=== PATIENT | male | born 2000 | race American Indian/Alaskan Native ===

== ENCOUNTER 2021-02-19 12:24 | Emergency (ER) | payer SELFPAY ==
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
[2021-02-19] MEDS ORDERED: MORPHINE 4 MG/1 ML INJ IV ONE (14:22)
[2021-02-19] MEDS ORDERED: ONDANSETRON 4 MG/2 ML INJ IV ONE (14:22)
[2021-02-19] MEDS ORDERED: SODIUM CHLORIDE 0.9% 1000 ML 1,000 ML IV ONE (14:22)
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
[2021-02-19 14:40] LABS: Basophils % (Auto) 0.6 % (0.0-1.8); Eosinophils # (Auto) 0.1 K/mm3 (0.0-0.4); Eosinophils % (Auto) 1.2 % (0.0-4.3); Hematocrit 43.8 % (35.5-45.6); Hemoglobin 14.5 gm/dl (11.8-15.2); Lymphocytes # (Auto) 1.1 K/mm3 (1.2-5.4); Lymphocytes % (Auto) 14.8 % (13.4-35.0); Mean Corpuscular HGB Conc 33 % (32-34); Mean Corpuscular Volume 93 fl (84-94); Monocytes # (Auto) 0.7 K/mm3 (0.0-0.8); Monocytes % (Auto) 9.7 % (0.0-7.3); Platelet Count 230 K/mm3 (140-440); Red Blood Count 4.74 M/mm3 (3.65-5.03); Red Cell Distribution Width 13.7 % (13.2-15.2)
[2021-02-19 14:59] LABS: Alanine Aminotransferase 19 units/L (7-56); Albumin 4.2 g/dL (3.9-5); BUN/Creatinine Ratio 10; Blood Urea Nitrogen 9 mg/dL (9-20); Calcium 9.3 mg/dL (8.4-10.2); Hemolysis Index 21
[2021-02-19] MEDS ORDERED: IBUPROFEN 800 MG TAB PO ONE (15:10)
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
[2021-02-19 18:34] VITALS: BP 109/49
== END 2021-02-19 19:10 | disposition home or self-care (01) ==
LOC: ED 12:24
DX: S22.42XA Multiple fractures of ribs, left side, initial encounter for closed fracture (principal); S00.91XA Abrasion of unspecified part of head, initial encounter; J93.9 Pneumothorax, unspecified; V87.7XXA Person injured in collision between other specified motor vehicles (traffic), initial encounter; Y93.89 Activity, other specified; Y92.488 Other paved roadways as the place of occurrence of the external cause; Y99.8 Other external cause status
CPT/HCPCS: 36415; 70450; 71046; 71260; 73030; 74177; 80053; 82550; 84132; 85025; 99284; J7030; Q9967; Q0162; J2270; J2405